=== PATIENT | male | born 1940 | race Caucasian/White ===

== ENCOUNTER 2017-06-26 12:03 | Inpatient (IN) | payer MEDICARE ==
[~2017-06-26] VITALS: Ht 185.4 cm; Wt 68.5 kg
[2017-06-26] MEDS ORDERED: IBUPROFEN200 MG (12:22)
[2017-06-26] MEDS ORDERED: KEFLEX500 MG PO (15:18)
--- NOTE | 2017-06-26 20:00 | NUR ---
1955 - PT ADMITTED FROM ER VIA CINDY SANTOS STROKE. PT ALERT, ORIENTED, SLOW TO RESPOND, MULTIPLE CUES GIVEN FOR PROCEDUES, DOES NOT SEEN TO UNDERSTANDI EXPLANATIONS, POOR EYE CONTACT. DENIES C/O CHEST PAIN AT THIS TIME, NO SOB. ON ROOM AIR. EXPLANATIONS OF ROOM, HOSPITAL PROCEDURES EXPLAINED, PT NOT VERY RECEPTIVE TO TEACHING. CONTINUES TO HAVE WEAKNESS LEFT SIDED WEAKNESS DRESSING LEFT HAND INTACT.
--- NOTE | 2017-06-26 22:34 | EKG ---
[facility] [address] [facility] [place] [id number] Signed Normal sinus rhythm Right bundle branch block Abnormal ECG No previous ECGs available Confirmed by NEW RAMIREZ MD ([id number]) on 06/26/2017 10:34:28 PM Electronically Signed By: NEW RAMIREZ MD 06/26/17 2234 PATIENT NAME: DENZEL ALCANTARA Electrocardiogram DATE OF : 38 PHYSICIAN: NEW RAMIREZ MD REPORT #: [id number] REPORT IS CONFIDENTIAL AND NOT TO BE RELEASED WITHOUT AUTHORIZATION
--- NOTE | 2017-06-26 22:36 | NUR ---
Pt trying to get out of bed, required multiple cues to listen to informations being given by this rn r/t fall safety, left sideds unsteadiness present, not very receptive. sat at edge of bed, voided using urinal, dark yellow urine. back to bed, . not very receptive to assessments, unknown if baseline or confusion.no sob, no c/o chest pain at this time, ivf infusing
--- NOTE | 2017-06-27 04:32 | NUR ---
medicated with tylenol 500mg po c/o left hand pain, no c/o chest pain, continues to require multiple cues for procedures, bed alarm on rails up
--- NOTE | 2017-06-27 07:30 | NUR ---
PT ASLEEP IN BED WITH IVF RUNNING. REPORT RECIEVED FROM HEMALATHA CHOUDHURY. BED ALARM ON DUE TO IMPULSIVE BEHAVIOR.
--- NOTE | 2017-06-27 07:49 | NUR ---
PATIENT RESTING IN BED WITH EYES CLOSED.
--- NOTE | 2017-06-27 09:30 | NUR ---
RN IN WITH PATIENT ASSESSING.
--- NOTE | 2017-06-27 09:38 | NUR ---
PT AWAKE AND CRANKY. STATES HE IS IN PAIN AND WOULD LIKE A NARCOTIC. ACCEPTED THE TYLENOL ON HIS EMAR. HAS TO BE ASKED MULTIPLE TIMES TO PERFORM A TASK. LEFT HAND SHAKY BUT IS ABLE TO HOLD A CUP FOR WATER. PT STATES HE DOES NOT THINK HE HAS HAD ASTROKE. 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 DENIES HEADACHE.
--- NOTE | 2017-06-27 11:00 | NUR ---
PT UP TO RESTROOM WITH RN STUDENT. STATES HE IS IMPULSIVE AND WILL NOW BE A 2 PERSON ASSIST. DOES NOT FOLLOW DIRECTIONS.
--- NOTE | 2017-06-27 12:12 | NUR ---
PATIENT IN BED RESTING WITH EYES CLOSED. OFFERED PATIENT TO SIT UP FOR LUNCH. PATIENT STATES THAT HE IS NOT HUNGRY AT THIS TIME.
--- NOTE | 2017-06-27 12:54 | NUR ---
PT OFF FLOOR WITH XRAY. PT CONTINUES TO NEED LOTS OF DIRECTION AND GUIDENCE WHILE DOING TASKS. PT ABLE TO PIVOT TO WHEELCHAIR WITH 2 PERSON ASSIST. UNSTEADY ON FEET.
--- NOTE | 2017-06-27 15:25 | NUR ---
PT OFF FLOOR WITH CT. RN STUDENT AND RN STUDENT INSTRUCTOR PLACED NEW IV IN RIGHT FOREARM.
--- NOTE | 2017-06-27 15:45 | NUR ---
PATIENT SITTING UP IN BED. STUDENT NURSE IN ROOM.
--- NOTE | 2017-06-27 17:12 | NUR ---
MED REC COMPLETE WITH PATIENT INTERVIEW. OTHER THAN OVER THE COUNTER IBUPROFEN FOR ARTHRITIS PATIENT DOES NOT TAKE ANY OTHER CHRONIC MEDICATIONS. PATIENT WOULD LIKE MEDICATIONS TO GO TO [facility] IF HE NEEDS ANY.
--- NOTE | 2017-06-27 17:53 | NUR ---
PT IN BED TALKING ON PHONE AND EATING DINNER. DOES NOT HAVE DENTURES IN BUT SEEMS TO BE DOING A GOOD JOB CUTTING UP FOOD AND CHEWING. ASKED HIM TO HAVE FAMILY BRING THEM IN.
--- NOTE | 2017-06-27 18:02 | NUR ---
PATIENT SITTING UP IN BED EATING DINNER. FRESH ICE WATER GIVEN. CALL BUTTON IN REACH. BED ALARM ON.
--- NOTE | 2017-06-27 19:07 | NUR ---
CALLED DR RAMIREZ REGARDING CT RESULTS. STATED HE WILL BE STAYING WITH US, VASCULAR SURGEON SAYS NOTHING CAN BE DONE.
--- NOTE | 2017-06-27 21:44 | NUR ---
AWAKE, ALERT, IMPROVED MOOD AND AFFECT. CALMER, NO C/O CP, TELE IN PLACE. SL INTACT. NO C/O PAIN OR REQUESTS. WATCHING TV
--- NOTE | 2017-06-28 03:59 | NUR ---
pt c/o left shoulder, left hand and left knee area pain, medicted with 1 tylenol 500mg, awake, watching tv, no c/o chest pain. tele inplace, bed alarm on
--- NOTE | 2017-06-28 04:50 | NUR ---
Pt currently resting, eys closed, no resp distress. no c/o chest pain. Tele#[address], multiform PVC's. Left hand dressing intact, scabbed and bruised areas over left knee intact and tender. Pt walked to brp with 1 person assist and FWW, tolerated well, gait much improved from yesterday. Continues to be very impulsive and semi receptive to informations, more cooperative today too. Field start IV dc'd, 2nd IV site intact. Pt was medicated x1 with Tylenol 500mg po per c/o left hand pain. effective
--- NOTE | 2017-06-28 07:40 | NUR ---
REPORT RECEIVED FROM HEMALATHA CHOUDHURY. PT ASLEEP AFTER HAVING ULTRASOUND.
--- NOTE | 2017-06-28 09:42 | NUR ---
PT CURRENTLY HAVING AN ECHO.
--- NOTE | 2017-06-28 09:49 | NUR ---
PATIENT HAS A BMI 0F 19.8 AND IS ON A CARDIAC DIET. HE SAID HE EATS SMALL AMOUNTS THROUGHOUT THE DAY. HE HAS NEVER HAD A BIG APPETITE. HE IS FINE WITH HIS MEALS HERE. EVERY NOW AND THEN HE WILL ASK FOR A PUDDING FOR A SNACK. HE SAYS HE DOESN'T THINK HE HAS HAD ANY WEIGHT LOSS. "I'M PRETTY SURE I'VE BEEN THIS WEIGHT FOR A LONG TIME." EXCEPT WHEN HE HAD PART OF HIS COLON REMOVED; AFTER THAT SURGERY HE WAS DOWN TO 110 LBS. OVER TIME HE GAINED WEIGHT BACK UP TO 150 LBS WHICH IS WHERE HE CONTINUES TO BE. NO NUTRITIONAL INTERVENTION DONE AT THIS TIME. PATIENT KNOWS HE CAN ASK FOR A SNACK DURING THE DAY.
--- NOTE | 2017-06-28 10:04 | NUR ---
PATIENT RESTING IN BED WITH EYES CLOSED. FRESH ICE WATER GIVEN.
--- NOTE | 2017-06-28 10:33 | NUR ---
PT DONE WITH ECHO. NOW TRYING TO SLEEP. FIXED LEAD AGAIN. HR LOW IN THE 50'S
--- NOTE | 2017-06-28 12:28 | NUR ---
MED STUDENT IN TO SEE PATIENT.
--- NOTE | 2017-06-28 14:00 | NUR ---
PATIENT SITTING UP IN BED WITH VISITORS IN ROOM. TALKED TO PATIENT ABOUT A SHOWER THIS AFTERNOON. NO NEEDS AT THIS TIME.
--- NOTE | 2017-06-28 14:18 | NUR ---
PT TALKING ON PHONE WITH FAMILY IN ROOM. BAGGER MEAT WILL GET HIM IN THE SHOWER SHORTLY. PT AWARE.
--- NOTE | 2017-06-28 16:06 | NUR ---
PATIENT SHOWERED WITH ONE PERSON ASSIST. ORAL CARE DONE. LINENS CHANGED. PATIENTS FAMILY HERE TALKING TO SOCK AND STOCKING IRONER MADDIE. PATIENT BACK IN BED WATCHING TV. SIDERAILS UP BED ALARM ON.
--- NOTE | 2017-06-28 16:38 | NUR ---
PT SHOWERED WITH SHIP'S ENGINEER. PT REMAINS IMPULSIVE AND HAD TO BE REMINDED SEVERAL TIMES TO STAY IN THE SHOWER CHAIR. BACK IN BED AND IS WATCHING TV. STATES HE FEELS BETTER AFTER HIS SHOWER.
--- NOTE | 2017-06-28 17:26 | NUR ---
CARE CONFERENCE ATTENDEES: PATIENT. NIA PT DAUGHTER, LAQUITA AND MADDIE PT BROTHER AND , STAFF, DR RAMIREZ, MYSELF-CASE MANAGEMENT. DISCUSSED WHAT HAS HAPPENED TO PT, IE STROKE, TESTING DONE CAROTID STUDY YEST SHOWED OCCULUSION OF THE RT CAROTID. INFORMED HE WAS STARTED ON MEDS, ASPIRIN, ANTICHOLESTROL MEDS, LOVENOX TO HELP HIM FROM HAVING ANOTHER STROKE, AND WE TALKED ABOUT PT, OT AND ST WORKING WITH PT AND PLACEMENT WILL DEPEND ON WHAT THESE THERAPIES SAY. PT IS WILLING TO GO TO [facility] ([facility] HIS [facility]) OR HE WILL GO TO BROTHERS WITH OP OR HH THERAPIES. EVERYONE IN THE FAMILY AGREED THIS SOUNDED LIKE A GOOD PLAN AND THEY WOULD LIKE TO BE KEPT AWARE OF PROGRESS, ETC OF PT. BUSINESS CARD GIVEN INFORMED THEY COULD CALL AND LEAVE A MESSAGE IF I WAS NOT IN OFFICE AND TOLD THEM I WOULD BE MORE THAN WILLING TO CALL WITH AN UPDATE AFTER THERAPIES SEE HIM TOMORROW.
--- NOTE | 2017-06-28 17:42 | NUR ---
PT WORKED WITH [employer]. X2 TODAY. REMAINS IMPULSIVE, BED\CHAIR ALARM. SHOWERED. PLAN TO DC WITH BROTHER. IV FLUSHES WELL. NEG FOR AAA
--- NOTE | 2017-06-28 17:54 | NUR ---
PATIENT RESTING IN BED FRESH ICE WATER GIVEN. PATIENT NOT HUNGRY AT THIS TIME. BED ALARM ON. CALL BUTTON IN REACH. NO OTHER NEEDS AT THIS TIME.
--- NOTE | 2017-06-28 19:20 | NUR ---
RECEIVED REPORT FROM RN. PATIENT IS RESTING COMFORTABLY IN BED, BREATHING IS EVEN AND UNLABORED. DENIES NEEDS AT THIS TIME. CALL LIGHT WITHIN EACH, BED ALARM ON.
--- NOTE | 2017-06-28 19:40 | NUR ---
AFTER BED ALARM GOING OFF, ENTERED THE ROOM TO FIND PATIENT AMBULATING WITH FWW/NON-SLIP SOCKS. EDUCATED PATIENT ABOUT CALLING FOR ASSISTANCE WHEN AMBULATING. ONCE BACK IN BED, MORE SENSITIVE BED ALARM SETTING WAS APPLIED. PATIENT DENIES FURTHER NEEDS AT THIS TIME. CALL LIGHT WITHIN REACH, BED ALARM ON, ASSESSMENT DONE.
--- NOTE | 2017-06-28 20:12 | NUR ---
BED ALARM WENT OFF. PATIENT WAS UP AND FCI TO BATHROOM. REMINDED PATIENT TO CALL. PATIENT PERFORMED OWN EFREN CARE AFTER USING TOILET. GOT BACK INTO BED. PUT BED ALARM ON A MORE SENSITIVE SETTING AND REMINDED PATIENT TO CALL AGAIN. WHITEBOARD UPDATED, ROOM TIDIED. NEW GREEN SHEET PUT ON DOOR.
--- NOTE | 2017-06-28 20:47 | NUR ---
PATIENT SET OFF BED ALARM AGAIN. GOT PATIENT TO BATHROOM SAFELY AND PATIENT PERFORMED OWN EFREN CARE.
--- NOTE | 2017-06-28 22:27 | NUR ---
PATIENT RESTING COMFORTABLY IN BED, BREATHING IS EVEN AND UNLABORED. DENIES NEEDS AT THIS TIME. CALL LIGHT WITHIN REACH, BED ALARM ON.
--- NOTE | 2017-06-28 23:39 | NUR ---
PATIENT REPORTS 3/10 PAIN IN LEFT HAND, BUT DENIES PAIN MEDICATION AT THIS TIME. HE STATES "NO I DON'T NEED ANYTHING. I'LL BE ALRIGHT. IT USUALLY DOESN'T GET BAD UNTIL THE MORNING TIME. I WILL LET YOU KNOW IF I NEED SOMETHING FOR THE PAIN." DENIES NEEDS AT THIS TIME. CALL LIGHT WITHIN REACH, BED ALARM ON.
--- NOTE | 2017-06-29 00:12 | NUR ---
PATIENT IN BED ASLEEP. BED ALARM ON
--- NOTE | 2017-06-29 01:50 | NUR ---
PATIENT RESTING COMFORTABLY IN BED, BREATHING IS EVEN AND UNLABORED. CALL LIGHT WITHIN REACH, BED ALARM ON.
--- NOTE | 2017-06-29 02:28 | NUR ---
PATIENT ASLEEP, DOES NOT NEED ANYTHING AT THIS TIME
--- NOTE | 2017-06-29 03:37 | NUR ---
PATIENT CALLED FOR COFFEE, DOES NOT NEED ANYTHING ELSE AT THIS TIME.
--- NOTE | 2017-06-29 03:40 | NUR ---
PATIENT RESTING COMFORTABLY IN BED, BREATHING IS EVEN AND UNLABORED. ASSISTED TO BATHROOM WITH 1PA/FWW/NON-SLIP SOCKS, WHICH PATIENT TOLERATED WELL. NOW RESTING COMFORTABLY AGAIN IN BED. REPORTS 5/10 PAIN IN LEFT HAND. PRN TYLENOL GIVEN PER EMAR. DENIES FURTHER NEEDS AT THIS TIME. CALL LIGHT WITHIN REACH, BED ALARM ON.
--- NOTE | 2017-06-29 05:52 | NUR ---
PATIENT'S NIGHT WAS UNEVENTFUL. HE HAS BEEN RESTING COMFORTABLY IN BED THROUGHOUT SHIFT. VSS, PAIN HAS BEEN WELL CONTROLLED WITH PRN TYLENOL. REQUIRES A BED ALARM DUE TO BEING HIGHLY IMPULSIVE. 1PA/FWW. HE IS SALINE LOCKED. NO ACUTE CHANGES FROM BEGINNING OF SHIFT.
--- NOTE | 2017-06-29 06:30 | NUR ---
GOT PATIENT COFFEE
--- NOTE | 2017-06-29 07:46 | NUR ---
REPORT RECEIVED FROM ABEBA. PATIENT RESTING IN BED. NO APPARENT DISTRESS.
--- NOTE | 2017-06-29 09:20 | NUR ---
PT STATED HIS ARMS AND HANDS WERE HURTING HIM SO I LET HIS NURSE YIMI KNOW.
--- NOTE | 2017-06-29 10:30 | NUR ---
PATIENT WAS UP WALKING WITH PHYSICAL THERAPIST. PATIENT TOLERATED WELL.
[2017-06-29] MEDS ORDERED: SULFAMETHOXAZO1 EAC1 PO (12:44)
[2017-06-29] MEDS ORDERED: ASPIRIN EC81 MG PO (12:45)
[2017-06-29] MEDS ORDERED: LIPITOR40 MG PO (12:45)
[2017-06-29] MEDS ORDERED: METOPROLOL TART25 MG PO (12:45)
--- NOTE | 2017-06-29 13:02 | NUR ---
DR RAMIREZ WAS IN ROOM TO SEE AND REEVALUATE PATIENT. PATIENT WAS ASSISTED TO BATHROOM, SHOWERED, ASSISTED BACK TO BED. PATIENT IS VERY IMPULSIVE. BED ALARM ON. PATIENT EDUCATED ABOUT SAFETY AND CALLING WHEN NEEDED HELP.
--- NOTE | 2017-06-29 13:32 | NUR ---
PT SAID HE HAD AN ACCEDINT SO I GAVE HIM A SHOWER.
--- NOTE | 2017-06-29 15:39 | NUR ---
PATIENT RESTING IN BED AT THIS TIME. REPORT MILD PAIN IN THE LEFT HAND. NEURO ASSESSMENT COMPLETED AND NO DEFICIT NOTED. PATIENT IS A LITTLE UNSTEADY. WALKED WITH PHYSICAL THERAPIST AND TOLERATED WELL.
--- NOTE | 2017-06-29 15:42 | NUR ---
PT IN BED. TOOK TO THE BATHROOM. FRESH ICE WATER. PT HAS CALL LIG IN REACH
--- NOTE | 2017-06-29 17:15 | NUR ---
PT DOING WELL.
--- NOTE | 2017-06-29 17:38 | NUR ---
PATIENT SITTING AT BEDSIDE EATING DINNER. EVENING MEDS ADMINISTERED. REPORT NO DISCOMFORT.
--- NOTE | 2017-06-29 18:08 | NUR ---
TALKED WITH PT EARLIER ABOUT GETTING HIM A FRONT WHEELED WALKER, HE STATES HIS BROTHER HAS 2 OF THEM AND HE DOUBTS HE WILL NEED ONE FOR LONG SO DON'T WASTE MONEY ON GETTING ME ANOTHER ONE. I ALSO CALLED AND SPOKE WITH BROTHER LAQUITA AND HE STATED HE WOULD LIKE TO BE HERE TO LISTEN TO WHAT THE DR SAID AND WHAT THE DC INSTRUCTIONS SAY. LEARNED THAT A SWALLOW STUDY IS SCHEDULED FOR TOMORROW AROUND [address]. I CALLED LAQUITA AND INFORMED HIM OF THIS AND HE ASKED IF SOMEONE COULD CALL HIM WHEN THE SWALLOW STUDY STARTED AND THAT WAY HE COULD GET HERE ABOUT THE TIME IT IS DONE FOR PT DC HE HAS A [address] HERE.
--- NOTE | 2017-06-29 18:10 | NUR ---
PATIENT HAD DONE WELL TODAY. WALKED WITH PHYSICAL THERAPIST TWICE TODAY. HAS BEEN UP TO BATHROOM. HAD SHOWER TODAY. NEURO CHECCK. NO DEFICIT, NO SLURRED SPEECH. SWALLOW STUDY SCHEDULED FOR TOMORROW.
--- NOTE | 2017-06-29 19:10 | NUR ---
RECEIVED REPORT FROM RN. PATIENT IS RESTING COMFORTABLY IN BED, BREATHING IS EVEN AND UNLABORED. CALL LIGHT WITHIN REACH, BED ALARM ON.
--- NOTE | 2017-06-29 19:30 | NUR ---
ROUNDED CHARGE. PATIENT IS RESTING IN BED WATCHING TV. PATIENT DENIES ANY COMMENTS, QUESTRIONS, OR CONCERNS. NO NEEDS NOTED AT THIS TIME. CALL LIGHT IN REACH.
--- NOTE | 2017-06-29 21:09 | NUR ---
PATIENT IS RESTING COMFORTABLY IN BED, BREATHING IS EVEN AND UNLABORED. PATIENT REPORTS PAIN IN LEFT HAND, BUT DENIES PAIN MEDICATION AT THIS TIME. HE STATES "IT ISN'T BAD RIGHT NOW. IT GETS WORSE IN THE MORNING." ASSISTED TO BATHROOM WITH 1PA/FWW/NON-SLIP SOCKS. PATIENT IS NOW RESTING COMFORTABLY IN BED. DENIES FURTHER NEEDS AT THIS TIME. ASSESSMENT DONE. PULSE IS 57 NOTED, METOPROLOL HELD UNTIL MD IS UPDATED. CALL LIGHT WITHIN REACH, BED ALARM ON.
--- NOTE | 2017-06-29 22:15 | NUR ---
UPDATED DR. RAMIREZ REGARDING PATIENT'S PULSE IS 57. HE STATED TO GIVE THE METOPROLOL. NO OTHER ORDERS.
--- NOTE | 2017-06-29 23:49 | NUR ---
PATIENT RESTING COMFORTABLY IN BED, BREATHING IS EVEN AND UNLABORED. DENIES NEEDS AT THIS TIME. CALL LIGHT WITHIN REACH, BED ALARM ON.
--- NOTE | 2017-06-30 03:00 | NUR ---
PATIENT RESTING COMFORTABLY IN BED, BREATHING IS EVEN AND UNLABORED. DENIES NEEDS AT THIS TIME. CALL LIGHT WITHIN REACH, BED ALARM ON.
--- NOTE | 2017-06-30 04:11 | NUR ---
PATIENT RESTING COMFORTABLY IN BED. DENIES PAIN IN HAND AT THIS TIME. PATIENT STATES "I DON'T NEED ANY PAIN MEDS RIGHT NOW. MY HAND FEELS GOOD." NO COMPLAINTS OF PAIN ANYWHERE ELSE. DENIES NEEDS AT THIS TIME. CALL LIGHT WITHIN REACH, BED ALARM ON.
--- NOTE | 2017-06-30 05:00 | NUR ---
PATIENT RESTING COMFORTABLY IN BED. DENIES NEEDS AT THIS TIME. DENIES PAIN IN HAND. CALL LIGHT WITHIN REACH.
--- NOTE | 2017-06-30 05:33 | NUR ---
PATIENT'S NIGHT WAS UNEVENTFUL. HE HAS BEEN RESTING COMFORTABLY IN BED THROUGHOUT SHIFT. HAS NOT COMPLAINED OF PAIN THIS SHIFT AND HAS DENIED PAIN MEDICATION. REQUIRES BED ALARM DUE TO BEING IMPULSIVE. HE IS SALINE LOCKED, 1PA/FWW. NO ACUTE CHANGES FROM BEGINNING OF SHIFT.
--- NOTE | 2017-06-30 06:28 | NUR ---
PATIENT RESTING COMFORTABLY IN BED. DENIES NEEDS AT THIS TIME. REPORTS MILD PAIN IN LEFT HAND, BUT DENIES PAIN MEDICATION AT THIS TIME. CALL LIGHT WITHIN REACH, BED ALARM ON.
--- NOTE | 2017-06-30 07:20 | NUR ---
REPORT RECEIVED FROM ABEBA, PATIENT APPEARS TO BE SLEEPING AT THE TIME OF REPORT. RR EVEN/UNLABORED. NO ACUTE DISTRESS NOTED.
--- NOTE | 2017-06-30 08:00 | NUR ---
PATIENT IN BED, WHITEBOARD UPDATED, ROOM TIDIED.
--- NOTE | 2017-06-30 12:53 | NUR ---
PATIENT RESTING IN BED APPEARS TO BE SLEEPING. RR EVEN/ UNLABORED. NO APPARENT DISTRESS.
--- NOTE | 2017-06-30 12:55 | NUR ---
patient going down for swallow evaluation.
--- NOTE | 2017-06-30 13:03 | NUR ---
FASHION EDITOR IN TO TAKE PATIENT FOR HIS SWALLOW STUDY.
--- NOTE | 2017-06-30 13:42 | NUR ---
PATIENT BACK TO FLOOR. RESTING IN BED AT THIS TIME WATCHING TV. DENIES PAIN. NO DISTRESS.
--- NOTE | 2017-06-30 18:42 | NUR ---
FAXED DISCHARGE NIRALI TO [facility]. FAX CONFIRMATION RECEIVED. SPOKE WITH EYELET OPERATOR MADDIE WHO STATES SHE SENT ORDER/CLINICALS YESTERDAY.
== END 2017-06-30 15:30 | disposition home or self-care (01) | DRG 65 ==
LOC: ED 12:03 → MS 19:35 → CCU 19:35 → MS 20:10
PROVIDERS: ADMIT Internal Medicine
DX: I63.231 Cerebral infarction due to unspecified occlusion or stenosis of right carotid arteries (principal); I47.1 Supraventricular tachycardia; K50.90 Crohn's disease, unspecified, without complications; I10 Essential (primary) hypertension; I25.10 Atherosclerotic heart disease of native coronary artery without angina pectoris; I71.2 Thoracic aortic aneurysm, without rupture; S61.213A Laceration without foreign body of left middle finger without damage to nail, initial encounter; W19.XXXA Unspecified fall, initial encounter; I95.1 Orthostatic hypotension; K52.9 Noninfective gastroenteritis and colitis, unspecified; E78.5 Hyperlipidemia, unspecified
CPT/HCPCS: 70450; 70496; 70498; 70551; 71010; 72125; 73130; 74230; 80053; 80061; 81001; 83036; 84484; 85025; 90715; 92610; 92611; 93005; 93010; 93306; 93880; 97110; 97112; 97116; 97162; 97166; 97530; J1650; J7120; Q9967